=== PATIENT | male | born 1995 | race African-American/Black ===

== ENCOUNTER 2017-02-22 10:50 | Emergency (ER) | payer MEDICAID, OTHER ==
[~2017-02-22] VITALS: Ht 177.8 cm; Wt 61.0 kg
[~2017-02-22 10:50] MED LIST: RISP3
[2017-02-22] MEDS ORDERED: KETOROLAC 60MG/2ML VIAL IM ONE (12:00)
[2017-02-22 14:42] VITALS: BP 122/70
== END 2017-02-22 18:05 | disposition home or self-care (01) ==
LOC: ER 12:23
DX: S09.90XA Unspecified injury of head, initial encounter (principal); F17.210 Nicotine dependence, cigarettes, uncomplicated; Z79.899 Other long term (current) drug therapy; W50.0XXA Accidental hit or strike by another person, initial encounter; Y93.67 Activity, basketball; Y92.310 Basketball court as the place of occurrence of the external cause; Y99.8 Other external cause status
CPT/HCPCS: 70450; 70486; 96372; 99284; J1885

== ENCOUNTER 2017-05-03 18:53 | Emergency (ER) | payer MEDICAID ==
[~2017-05-03] VITALS: Ht 175.3 cm; Wt 70.0 kg
[2017-05-03 19:10] VITALS: BP 114/55
== END 2017-05-04 00:30 | disposition left against medical advice (07) ==
LOC: ER 18:53
DX: S70.361A Insect bite (nonvenomous), right thigh, initial encounter (principal); Z53.21 Procedure and treatment not carried out due to patient leaving prior to being seen by health care provider; W57.XXXA Bitten or stung by nonvenomous insect and other nonvenomous arthropods, initial encounter; Y93.89 Activity, other specified; Y92.89 Other specified places as the place of occurrence of the external cause; Y99.8 Other external cause status

== ENCOUNTER 2017-05-18 23:27 | Emergency (ER) | payer MEDICAID | END 2017-05-19 02:01 | disposition left against medical advice (07) | LOC: ER 05-19 01:56 | DX: Z53.21 Procedure and treatment not carried out due to patient leaving prior to being seen by health care provider (principal) ==

== ENCOUNTER 2017-05-19 08:27 | Emergency (ER) | payer SELFPAY ==
[~2017-05-19] VITALS: Ht 175.3 cm; Wt 67.0 kg
[2017-05-19] MEDS ORDERED: KETOROLAC 60MG/2ML VIAL IM ONE (09:45)
[2017-05-19 09:59] VITALS: BP 119/78
== END 2017-05-19 11:30 | disposition home or self-care (01) ==
LOC: ER 10:27
DX: S93.401A Sprain of unspecified ligament of right ankle, initial encounter (principal); F17.210 Nicotine dependence, cigarettes, uncomplicated; F12.10 Cannabis abuse, uncomplicated; W03.XXXA Other fall on same level due to collision with another person, initial encounter; Y93.61 Activity, american tackle football; Y92.39 Other specified sports and athletic area as the place of occurrence of the external cause
CPT/HCPCS: 73610; 96372; 99284; J1885

== ENCOUNTER 2018-10-04 11:20 | Emergency (ER) | payer OTHER ==
[~2018-10-04] VITALS: Ht 172.7 cm; Wt 72.0 kg
[2018-10-04] MEDS ORDERED: IBUPROFEN 600MG TABLET PO ONE (12:15)
[2018-10-04] MEDS ORDERED: HYDROCODONE/ACETAMINOPHEN 5/325MG TABLET PO ONE (13:30)
[2018-10-04 14:00] VITALS: BP 134/81
== END 2018-10-04 14:48 | disposition home or self-care (01) ==
LOC: ER 11:20
DX: S93.401A Sprain of unspecified ligament of right ankle, initial encounter (principal); F17.200 Nicotine dependence, unspecified, uncomplicated; X50.1XXA Overexertion from prolonged static or awkward postures, initial encounter; Y93.64 Activity, baseball; Y92.89 Other specified places as the place of occurrence of the external cause
CPT/HCPCS: 73610; 99283

== ENCOUNTER 2019-01-07 23:37 | Emergency (ER) | payer MEDICAID, OTHER ==
[~2019-01-07] VITALS: Ht 170.2 cm; Wt 71.0 kg
[2019-01-08 00:56] VITALS: BP 132/69
== END 2019-01-08 00:57 | disposition home or self-care (01) ==
LOC: ER 23:37
DX: S76.911A Strain of unspecified muscles, fascia and tendons at thigh level, right thigh, initial encounter (principal); F17.200 Nicotine dependence, unspecified, uncomplicated; Y93.61 Activity, american tackle football; Y93.89 Activity, other specified; Y92.9 Unspecified place or not applicable; Z98.890 Other specified postprocedural states
CPT/HCPCS: 99282

== ENCOUNTER 2019-01-18 15:49 | Emergency (ER) | payer MEDICAID ==
[~2019-01-18] VITALS: Ht 172.7 cm; Wt 60.0 kg
[2019-01-18 16:11] VITALS: BP 124/81
== END 2019-01-18 19:44 | disposition home or self-care (01) ==
LOC: ER 15:49
DX: S86.911A Strain of unspecified muscle(s) and tendon(s) at lower leg level, right leg, initial encounter (principal); F12.10 Cannabis abuse, uncomplicated; Z87.891 Personal history of nicotine dependence; Z98.890 Other specified postprocedural states; Z79.899 Other long term (current) drug therapy; V29.88XA Motorcycle rider (driver) (passenger) injured in other specified transport accidents, initial encounter; Y93.89 Activity, other specified; Y92.89 Other specified places as the place of occurrence of the external cause; Y99.8 Other external cause status
CPT/HCPCS: 99282

== ENCOUNTER 2019-12-20 06:57 | Emergency (ER) | payer MEDICAID, MEDICARE ==
[~2019-12-20] VITALS: Ht 177.8 cm; Wt 68.0 kg
[2019-12-20 07:43] VITALS: BP 133/78
[2019-12-20] MEDS ORDERED: KETOROLAC 30MG/ML VIAL IM ONE (07:45)
== END 2019-12-20 09:01 | disposition home or self-care (01) ==
LOC: ER 06:57
DX: S80.12XA Contusion of left lower leg, initial encounter (principal); W50.2XXA Accidental twist by another person, initial encounter; Y93.61 Activity, american tackle football; Y92.89 Other specified places as the place of occurrence of the external cause; Y99.8 Other external cause status; Z98.890 Other specified postprocedural states; F12.10 Cannabis abuse, uncomplicated
CPT/HCPCS: 73590; 73610; 96372; 99284; J1885

== ENCOUNTER 2020-07-17 11:43 | Emergency (ER) | payer MEDICAID, MEDICARE ==
[~2020-07-17] VITALS: Ht 172.7 cm; Wt 65.0 kg
[2020-07-17] MEDS ORDERED: AZITHROMYCIN 500 MG TABLET PO ONE (13:00)
[2020-07-17] MEDS ORDERED: CEFTRIAXONE SODIUM 250 MG/VIAL IM ONE (13:00)
[2020-07-17] MEDS ORDERED: LIDOCAINE HCL 1% 20ML VIAL (Pyxis) INJ INFIL ONE (13:00)
[2020-07-17 13:02] VITALS: BP 126/76
[2020-07-17 13:12] LABS: CLARITY URINE CLEAR (CLEAR); COLOR URINE DARK YELLOW (YELLOW); KETONES URINE NEGATIVE (NEGATIVE); LEUKOCYTE ESTERASE URINE 2+ (NEGATIVE); NITRITE URINE NEGATIVE (NEGATIVE); OCCULT BLOOD URINE NEGATIVE (NEGATIVE); PROTEIN URINE TRACE (NEGATIVE); SPECIFIC GRAVITY URINE 1.037 (1.005-1.030); UROBILINOGEN URINE 0.2 E.U./dL (0.2-1.0)
== END 2020-07-17 14:05 | disposition home or self-care (01) ==
LOC: ER 12:07
DX: R30.9 Painful micturition, unspecified (principal); N39.0 Urinary tract infection, site not specified; A64 Unspecified sexually transmitted disease; F12.10 Cannabis abuse, uncomplicated; Z98.890 Other specified postprocedural states
CPT/HCPCS: 81003; 87086; 96372; 99283; J0696; J3490

== ENCOUNTER 2021-07-12 14:48 | Emergency (ER) | payer MEDICAID ==
[~2021-07-12] VITALS: Ht 172.7 cm; Wt 73.0 kg
[~2021-07-12 14:48] MED LIST changes: +BO1 TP
[2021-07-12 14:54] VITALS: BP 134/78
[2021-07-12] MEDS ORDERED: HYDROCODONE/ACETAMINOPHEN 5/325MG TABLET PO ONE (15:45)
[2021-07-12] MEDS ORDERED: TETANUS, DIPHTHERIA, PERTUSSIS VAC/PF 0.5ML (>10YR OLD) IM ONE (16:15)
[2021-07-12] MEDS ORDERED: BACITRACIN ZINC OINT UDPKT TOP ONE (17:15)
[2021-07-12] MEDS ORDERED: ACET-2708 MT (17:39)
[2021-07-12] MEDS ORDERED: NAPR-1176 MT (17:39)
== END 2021-07-12 18:13 | disposition home or self-care (01) ==
LOC: ER 14:48
DX: S09.8XXA Other specified injuries of head, initial encounter (principal); S92.402A Displaced unspecified fracture of left great toe, initial encounter for closed fracture; S20.219A Contusion of unspecified front wall of thorax, initial encounter; M25.512 Pain in left shoulder; M25.511 Pain in right shoulder; V20.4XXA Motorcycle driver injured in collision with pedestrian or animal in traffic accident, initial encounter; Y93.89 Activity, other specified; Y92.9 Unspecified place or not applicable; Z98.890 Other specified postprocedural states
CPT/HCPCS: 70450; 71045; 73030; 73630; 99284; Z7610

== ENCOUNTER 2021-07-26 08:42 | Emergency (ER) | payer MEDICAID ==
[~2021-07-26] VITALS: Ht 165.1 cm; Wt 75.0 kg
[~2021-07-26 08:42] MED LIST changes: +ACET-2708 MT; +NAPR-1176 MT
[2021-07-26 09:13] VITALS: BP 144/75
== END 2021-07-26 09:53 | disposition home or self-care (01) ==
LOC: ER 08:42
DX: T17.920A Food in respiratory tract, part unspecified causing asphyxiation, initial encounter (principal); X58.XXXA Exposure to other specified factors, initial encounter; Y93.89 Activity, other specified; Y92.9 Unspecified place or not applicable
CPT/HCPCS: 99281

== ENCOUNTER 2023-05-16 18:46 | Emergency (ER) | payer MEDICAID ==
[~2023-05-16] VITALS: Ht 175.3 cm; Wt 72.0 kg
[2023-05-16 18:52] VITALS: BP 115/78; PULSE 63; RESP 18; TEMP 100.7; O2SAT 100
[2023-05-16 19:38] LABS: HEMATOCRIT. 45.6 % (42.0-52.0); HEMOGLOBIN. 15.8 g/dL (14.0-18.0); MEAN CORPUSCULAR HEMOGLOBIN 31.8 pg (28.0-32.0); MEAN CORPUSCULAR HGB CONC 34.7 g/dL (31.0-37.0); MEAN CORPUSCULAR VOLUME 91.6 fL (80.0-94.0); MEAN PLATELET VOLUME 7.3 fl (7.4-10.4); PLATELET 153 x1000/uL (130-400); RED BLOOD CELL COUNT 4.98 mill/uL (4.7-6.1); RED CELL DISTRIBUTION WIDTH 13.4 % (11.6-14.6); WHITE BLOOD COUNT 2.6 x1000/uL (4.5-11.0)
[2023-05-16 19:46] LABS: CHLORIDE 104 mEq/L (98-107); DIFFERENTIAL COMMENT 1; INDEX HEMOLYSI 1 (1-3); INDEX ICTERIC 1 (1-4); INDEX LIPEMIC 1 (1-3); POTASSIUM 2.9 mEq/L (3.5-5.1); SODIUM 136 mEq/L (136-145)
[2023-05-16 19:58] LABS: ALANINE AMINOTRANSFERASE 33 IU/L (13-61); ALBUMIN 3.8 g/dL (3.4-5.0); ASPARTATE AMINOTRANSFERASE 73 IU/L (15-37); BILIRUBIN TOTAL 0.3 mg/dL (0.1-1.0); CARBON DIOXIDE 29 mEq/L (21-32); CREATININE 1.3 mg/dL (0.6-1.3); GLUCOSE 92 mg/dL (70-105); PROTEIN TOTAL 7.2 g/dL (6.0-8.3); TROPONIN I HIGH SENSITIVITY 13 ng/L (<78); UREA NITROGEN BLOOD 8 mg/dL (7-21)
[2023-05-16 20:17] LABS: PLATELET ESTIMATE NORMAL
== END 2023-05-17 01:35 | disposition left against medical advice (07) ==
LOC: ER 18:46
DX: Z53.21 Procedure and treatment not carried out due to patient leaving prior to being seen by health care provider (principal)
CPT/HCPCS: 36415; 71045; 80053; 84484; 85025; 93005; 99281

== ENCOUNTER 2023-10-23 10:55 | Emergency (ER) | payer MEDICAID ==
[~2023-10-23] VITALS: Ht 175.3 cm; Wt 68.0 kg
[2023-10-23 11:05] VITALS: O2SAT 100
[2023-10-23] MEDS ORDERED: CEFTRIAXONE SODIUM 500 MG/VIAL IM ONE (12:00)
[2023-10-23] MEDS ORDERED: DOXY100C5 MT (12:07)
[2023-10-23 13:48] VITALS: BP 142/92; PULSE 68; RESP 20; TEMP 97.9
[2023-10-27 08:07] LABS: CHLAMYDIA TRACHOMATIS NAA Negative (Negative); NEISSERIA GONORRHOEAE NAA Negative (Negative)
== END 2023-10-23 13:50 | disposition home or self-care (01) ==
LOC: ER 11:08
DX: Z11.3 Encounter for screening for infections with a predominantly sexual mode of transmission (principal); F12.10 Cannabis abuse, uncomplicated
CPT/HCPCS: 99283; 86592; 87491; 87591; 36415; 96372; J0696

== ENCOUNTER 2024-01-02 17:30 | Emergency (ER) | payer MEDICAID ==
[~2024-01-02] VITALS: Ht 175.3 cm; Wt 77.0 kg
[~2024-01-02 17:30] MED LIST changes: +DOXY100C5 MT
[2024-01-02 17:41] VITALS: O2SAT 99
[2024-01-02] MEDS ORDERED: IBUP-2028 MT (18:21)
[2024-01-02] MEDS: IBUPROFEN 400MG TABLET PO ONE (18:33)
[2024-01-02 18:36] VITALS: BP 124/74; PULSE 78; RESP 18; TEMP 98.6
== END 2024-01-02 18:46 | disposition home or self-care (01) ==
LOC: ER 17:30
DX: S62.636A Displaced fracture of distal phalanx of right little finger, initial encounter for closed fracture (principal); M20.011 Mallet finger of right finger(s); F12.90 Cannabis use, unspecified, uncomplicated; Z98.890 Other specified postprocedural states; X58.XXXA Exposure to other specified factors, initial encounter; Y93.89 Activity, other specified; Y92.89 Other specified places as the place of occurrence of the external cause; Y99.8 Other external cause status
CPT/HCPCS: 29130; 73140; 99283

== ENCOUNTER 2025-09-05 07:08 | Emergency (ER) | payer MEDICAID ==
[~2025-09-05] VITALS: Ht 167.6 cm; Wt 70.0 kg
[~2025-09-05 07:08] MED LIST changes: +IBUP-2028 MT
[2025-09-05 07:19] VITALS: O2SAT 100
[2025-09-05] MEDS: ACETAMINOPHEN 325MG TABLET PO ONE (08:35)
[2025-09-05 09:09] VITALS: BP 115/76; PULSE 94; RESP 18; TEMP 36.8; O2SAT 97
== END 2025-09-05 09:11 | disposition home or self-care (01) ==
LOC: ER 07:08
DX: M20.011 Mallet finger of right finger(s) (principal); F12.90 Cannabis use, unspecified, uncomplicated; Z79.1 Long term (current) use of non-steroidal anti-inflammatories (NSAID)
CPT/HCPCS: 29130; 73120; 99283